=== PATIENT | male | born 1960 | race Caucasian/White ===

== ENCOUNTER 2019-05-01 13:01 | Emergency (ER) | payer OTHER ==
[~2019-05-01] VITALS: Ht 193 cm; Wt 120.0 kg
[~2019-05-01 13:01] MED LIST: CENTRUM VITAMINS PO; CYCL1DRO EACHEYE; LISI-167 PO; TAMS0.4C2 PO
[2019-05-01 13:05] VITALS: BP 152/97
[2019-05-01] MEDS ORDERED: L.E.T SOLUTION TP ONE (14:00)
== END 2019-05-01 15:11 | disposition home or self-care (01) ==
LOC: ED 13:42
DX: S01.81XA Laceration without foreign body of other part of head, initial encounter (principal); W22.8XXA Striking against or struck by other objects, initial encounter; Y93.89 Activity, other specified; Y92.098 Other place in other non-institutional residence as the place of occurrence of the external cause; Y99.8 Other external cause status
CPT/HCPCS: 12052; 99284

== ENCOUNTER 2019-09-21 19:41 | Emergency (ER) | payer OTHER ==
[2019-09-21 19:56] VITALS: BP 132/91
[2019-09-21] MEDS ORDERED: LIDOCAINE-MPF 1%, 5ML ONE (20:18)
[2019-09-21] MEDS ORDERED: LIDOCAINE 1%, 10ML INFIL ONE (20:30)
[2019-09-21] MEDS ORDERED: NEOSPORIN OINT. PKT 1 PACKET ONE (20:55)
--- NOTE | 2019-09-21 21:06 | NUR ---
WOUND DRESSED. REVIEWED WOUND CARE
== END 2019-09-21 21:16 | disposition home or self-care (01) ==
LOC: ED 20:02
DX: S61.211A Laceration without foreign body of left index finger without damage to nail, initial encounter (principal); W26.0XXA Contact with knife, initial encounter; Y93.89 Activity, other specified; Y92.009 Unspecified place in unspecified non-institutional (private) residence as the place of occurrence of the external cause; Y99.8 Other external cause status
CPT/HCPCS: 12041; 99284